=== PATIENT | female | born 1990 | race Caucasian/White ===

== ENCOUNTER 2023-11-24 13:46 | Emergency (ER) | payer OTHER, SELFPAY ==
[2023-11-24 14:00] VITALS: BP 116/78
--- NOTE | 2023-11-24 16:08 | ED.SKININJ ---
Addendum entered and electronically signed by Kiersten Johnson NP 12/08/23 16:11:
Occipital scalp wound measurement: 0.5cm.
Original Note:
HPI-Injury
General
Chief Complaint: Head Injury
Source: patient and rn complex care
Exam Limitations: none
Time Seen by Provider: 11/24/23 15:42
Nursing documentation reviewed up to this point in time: agreed with
Travel History
Have you had any contact with someone who has COVID-19?: No
Do you have any symptoms of coronavirus? Fever > 100 degrees, chills, cough, shortness of breath, sore throat, loss of taste or smell, muscle aches, or headache?: No
History of Present Illness-Injury
Is this injury a work related problem?: No
Is pt an associate of [facility]?: No
Initial Injury comments:
Patient states she slipped on ice and fell. Hit back of head on ground. No LOC. Sustained a small lac to her occipital scalp. She lives [facility] [place] [facility]. Brought to ED by staff for eval. Complains of head, feeling fatigued.
Past History
Past History
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
ED Past Surgical History: None
Social History
Tobacco: Smoker
Alcohol: None
Drug: None
Personal: Single
Living: with family
Employment: Other
Family History
Family History: Other and Unable to obtain
Review of Systems
Review of Systems
Allergies reviewed?: Yes
All Other Systems: ROS reviewed and negative except as documented in HPI and ROS
Constitutional: Reports no symptoms
EENT: Reports no symptoms
Respiratory: Reports no symptoms
Cardiac: Reports no symptoms
Musculoskeletal: Reports no symptoms
Skin: Reports other (small laceration to occipital scalp)
Neurological: Reports headache
Psychiatric: Reports no symptoms
Skin Exam
Laceration
Posterior Scalp:
Orientation: vertical
Type of Laceration: simple
Any active bleeding?: no active bleeding
Distal skin color and temperature: normal-warm & good color
Normal distal neurovascular exam: Yes
Range of motion: full
Phy Exam
General Physical Exam
General Presentation: well appearing and no apparent distress
General age: appears stated age
General Skin: warm and dry
General Habitus: normal
General Mental: alert
Neurological Exam
Neurological Exam: alert, oriented x3, CN II-XII intact, no motor deficits and no sensory deficits
Curtis Coma Scale
Eye Opening: Spontaneous
Verbal Response: Oriented
Motor Response: Obeys Commands
GCS Total Score: 15
Musculoskeletal Exam
Musculoskeletal Exam: full ROM and neuro vasc intact
Skin Exam
Skin Exam: normal color, warm/dry and no rash
Psychiatric Exam
Psychiatric Exam: normal mood/affect
Course
Orders/Labs/Results
Orders:
Orders
11/24/23 16:07
CT Head W/o Iv Contrast Urgent
Comment:
Reason For Exam: trauma
11/24/23 16:57
Tetanus/Diphth/Acelpertussis [Adacel] 0.5 ml IM .ONCE ONE
Vital Signs
Initial and Last Documented VS:
Initial Vital Signs
Temp Pulse Resp BP Pulse Ox
98.8 F 97 17 116/78 99
11/24/23 14:00 11/24/23 14:00 11/24/23 14:00 11/24/23 14:00 11/24/23 14:00
Last Documented Vital Signs
Temp Pulse Resp BP Pulse Ox
98.8 F 97 17 116/78 99
11/24/23 14:00 11/24/23 14:00 11/24/23 14:00 11/24/23 14:00 11/24/23 14:00
Procedures
Laceration Closure
Posterior Scalp:
Status of Wound: clean
Description of Wound Edges: sharp
Preparation: cleaned with saline
Revision/Debridement: routine- no revision
Wound exploration: explored to base- no FB
Type of Closure: Dermabond-skin glue
*Radiology
Radiology exam reviewed: radiology read reviewed
*Pulse Oximetry
Patient hypoxic: no
*Critical Care Note
Total Time (30-74mins, 75-104mins- exclusive of procedures): Not Applicable
ED Attending Note
-
Portions of this chart may have been created with voice recognition software.� Occasional wrong word or��sound alike� substitutions may have occurred due to the inherent limitations of voice recognition software.
Discharge Plan
Departure
Patient Disposition: Home (Routine Discharge)
Date of Disposition: 11/24/23
Time of Disposition: 20:10
Patient with high blood pressure during this ER visit?: No
Condition: Good
Covid-19: Not Applicable
Discharge Problem:
Head injury
Instructions: Laceration Repair With Glue (DC), Head Injury in Adults (DC)
Prescriptions:
No Action
Unobtainable
0
Referrals:
UNKNOWN - PT DOES,NOT KNOW [Family Provider] -
Activity Restrictions/Additional Instructions:
Follow up with your primary care provider in 1-2 days.
Interventions
Interventions:
*ED COVID-19 Vaccine History Last Done: 11/24/23 14:01
ED- Neurological Assessment Last Done: 11/24/23 16:02
ED-Skin Assessment Last Done: 11/24/23 16:02
[2023-11-24] MEDS: ADACEL 0.5 ML IM (17:16)
[2023-11-24 20:10] VITALS: BP 130/70
== END 2023-11-24 20:25 | disposition home or self-care (01) ==
LOC: EMR 13:46
PROVIDERS: EMERGENCY PHYSICIAN Emergency Medicine
DX: S01.01XA Laceration without foreign body of scalp, initial encounter (principal); W00.0XXA Fall on same level due to ice and snow, initial encounter; F17.200 Nicotine dependence, unspecified, uncomplicated; Z23 Encounter for immunization
CPT/HCPCS: 99284; 12011; 90471; 70450; 90715